=== PATIENT | male | born 1970 | race Caucasian/White ===

== ENCOUNTER 2020-01-26 10:20 | Emergency (ER) | payer OTHER ==
[~2020-01-26] VITALS: Ht 177.8 cm; Wt 97.3 kg
[2020-01-26 10:43] VITALS: BP 106/88
--- NOTE | 2020-01-26 11:01 | NUR ---
CONTACT WITH 49 YR OLD MALE HERE WITH C/O "SORE THROAT AND LITTLE CONGESTION, FEELING SOME DISCOMFORT IN LUNGS WHEN I BREATHING. WE WERE TAKING CARE OF HER PARENTS WHO CAME DOWN WITH COVID"
--- NOTE | 2020-01-26 11:08 | NUR ---
DR BARTHOLOMEW AT BEDSIDE TO [facility] PT
--- NOTE | 2020-01-26 11:50 | NUR ---
NO ACUTE DISTRESS NOTED. NO IV TO DC. REVIEWED DC INSTRUCTIONS WITH PT, UNDERSTANDING VERBALIZED. PT LEFT AMB, GAIT STEADY.
== END 2020-01-26 11:52 | disposition home or self-care (01) ==
LOC: ED 11:23
DX: B34.9 Viral infection, unspecified (principal); R53.83 Other fatigue
CPT/HCPCS: 99283